=== PATIENT | male | born 1995 | race American Indian/Alaskan Native ===

== ENCOUNTER 2017-06-14 17:32 | Emergency (ER) | payer SELFPAY | END 2017-06-14 18:05 | disposition left against medical advice (07) | LOC: ED 17:32 | DX: R51 Headache (principal); Z53.21 Procedure and treatment not carried out due to patient leaving prior to being seen by health care provider ==

== ENCOUNTER 2017-07-27 22:48 | Emergency (ER) | payer SELFPAY ==
[2017-07-27 23:49] LABS: Basophils % (Auto) 0.5 % (0.0-1.8); Hematocrit 44.9 % (35.5-45.6); Hemoglobin 14.8 gm/dl (11.8-15.2); Mean Corpuscular HGB Conc 33 % (32-34); Mean Corpuscular Hemoglobin 32 pg (28-32); Mean Corpuscular Volume 97 fl (84-94); Platelet Count 220 K/mm3 (140-440); Red Blood Count 4.64 M/mm3 (3.65-5.03); Red Cell Distribution Width 12.9 % (13.2-15.2)
[2017-07-28 00:06] LABS: Alanine Aminotransferase 16 units/L (7-56); Albumin/Globulin Ratio 1.2 %; Alkaline Phosphatase 70 units/L (35-129); Anion Gap 18 mmol/L; BUN/Creatinine Ratio 13; Blood Urea Nitrogen 10 mg/dL (9-20); Carbon Dioxide 26 mmol/L (22-30); Chloride 100.6 mmol/L (98-107); Glucose 115 mg/dL (75-100); Lipase 35 units/L (13-60); Potassium 4.1 mmol/L (3.6-5.0); Sodium 140 mmol/L (137-145); Total Protein 7.4 g/dL (6.3-8.2)
[2017-07-28] MEDS ORDERED: TYLENOL PO ONE (02:25)
[2017-07-28 02:26] LABS: Bilirubin,Urine NEG (Negative); Blood,Urine LG (Negative); Ketones,Urine NEG (Negative); Leukocyte Esterase,Urine NEG (Negative); Mucus,Urine 2+ /HPF; Nitrite,Urine NEG (Negative)
[2017-07-28] MEDS ORDERED: TYLENOL ONE (02:28)
[2017-07-28 02:30] LABS: RBC,Urine > 182.0 /HPF (0.0-6.0)
[2017-07-28] MEDS ORDERED: ZOFRAN IV ONE (06:07)
[2017-07-28] MEDS ORDERED: TORADOL IV ONE (06:07)
[2017-07-28] MEDS ORDERED: NACL 0.9% 1000 ML 1,000 ML IV ONE (06:07)
--- NOTE | 2017-07-28 06:11 | Emergency Department Report ---
ED Abdominal Pain HPI - General Chief Complaint: Abdominal Pain Stated Complaint: ABD & SWOLLEN TONGUE Time Seen by Provider: 07/28/17 06:04 Source: patient Mode of arrival: Ambulatory Limitations: No Limitations - History of Present Illness Initial Comments: 22-year-old male who presents emergency Department 3 days of abdominal pain. Patient states pain started in his right lower quadrant and has stayed constant since that time. It is worse with palpation. He is also noticed some dark urine today. He denies fevers chills. He has had some nausea but no vomiting. He has had runny loose bowel movements. No history of abdominal surgeries. MD Complaint: abdominal pain -: Gradual, days(s) (3) Location: RLQ Migration to: no migration Severity: moderate Severity scale (0 -10): 10 Quality: aching Consistency: constant Improves With: nothing Worsens With: nothing Associated Symptoms: nausea. denies: vomiting, diarrhea, fever, chills, dysuria , hematemesis - Related Data Previous Rx's Medication Instructions Recorded Last Taken Type Acetaminophen/Codeine [Tylenol #3] 1 tab PO Q6H PRN #116 tab 01/11/16 Unknown Rx Penicillin Vk [Veetids TAB] 500 mg PO Q8H #30 tablet 01/11/16 Unknown Rx Ketorolac [Toradol] 10 mg PO Q6H PRN #20 tablet 08/06/16 Unknown Rx Ondansetron [Zofran Odt] 4 mg PO QID PRN #20 tab.rapdis 08/06/16 Unknown Rx Ibuprofen [Motrin 800 MG tab] 800 mg PO Q8HR PRN #21 tablet 07/28/17 Unknown Rx Ondansetron [Zofran Odt] 4 mg PO TID PRN #10 tab.rapdis 07/28/17 Unknown Rx Tamsulosin [Flomax] 0.4 mg PO QDAY #10 cap 07/28/17 Unknown Rx oxyCODONE [Roxicodone TAB] 5 mg PO Q6HR PRN #15 tablet 07/28/17 Unknown Rx Allergies Allergy/AdvReac Type Severity Reaction Status Date / Time No Known Allergies Allergy Verified 01/11/16 17:09 ED Review of Systems ROS: Stated complaint: ABD & SWOLLEN TONGUE Other details as noted in HPI Comment: All other systems reviewed and negative ENT: denies: epistaxis Respiratory: denies: cough, shortness of breath Cardiovascular: denies: chest pain, palpitations Gastrointestinal: abdominal pain, nausea Neurological: denies: headache, weakness, numbness, paresthesias ED Past Medical Hx - Past Medical History Previous Medical History?: Yes Additional medical history: SCOLIOSIS, kidnesy stones - Surgical History Additional Surgical History: "SOME OF SMALL INTESTINES REMOVED" - Family History Family history: no significant - Social History Smoking Status: Current Every Day Smoker Substance Use Type: None - Medications Home Medications: Home Medications Medication Instructions Recorded Confirmed Last Taken Type Acetaminophen/Codeine [Tylenol #3] 1 tab PO Q6H PRN #116 tab 01/11/16 Unknown Rx Penicillin Vk [Veetids TAB] 500 mg PO Q8H #30 tablet 01/11/16 Unknown Rx Ketorolac [Toradol] 10 mg PO Q6H PRN #20 tablet 08/06/16 Unknown Rx Ondansetron [Zofran Odt] 4 mg PO QID PRN #20 tab.rapdis 08/06/16 Unknown Rx Ibuprofen [Motrin 800 MG tab] 800 mg PO Q8HR PRN #21 tablet 07/28/17 Unknown Rx Ondansetron [Zofran Odt] 4 mg PO TID PRN #10 tab.rapdis 07/28/17 Unknown Rx Tamsulosin [Flomax] 0.4 mg PO QDAY #10 cap 07/28/17 Unknown Rx oxyCODONE [Roxicodone TAB] 5 mg PO Q6HR PRN #15 tablet 07/28/17 Unknown Rx ED Physical Exam - General Limitations: No Limitations General appearance: alert, in no apparent distress - Head Head exam: Present: atraumatic, normocephalic - Eye Eye exam: Present: normal appearance. Absent: scleral icterus, conjunctival injection - ENT ENT exam: Present: mucous membranes moist - Neck Neck exam: Present: normal inspection - Respiratory Respiratory exam: Present: normal lung sounds bilaterally. Absent: respiratory distress, wheezes - Cardiovascular Cardiovascular Exam: Present: regular rate, normal rhythm, normal heart sounds. Absent: systolic murmur, diastolic murmur, rubs, gallop - GI/Abdominal GI/Abdominal exam: Present: soft, tenderness (right lower quadrant tenderness), guarding (mild voluntary), normal bowel sounds. Absent: distended, rebound - Rectal Rectal exam: Present: deferred - Extremities Exam Extremities exam: Present: normal inspection - Back Exam Back exam: Present: normal inspection - Neurological Exam Neurological exam: Present: alert, oriented X3 - Psychiatric Psychiatric exam: Present: normal affect, normal mood - Skin Skin exam: Present: warm, dry, intact, normal color. Absent: rash ED Course Vital Signs 07/27/17 07/27/17 07/28/17 22:54 23:11 03:29 Temperature 98.4 F 98.4 F 98.1 F Pulse Rate 81 77 65 Respiratory 18 18 18 Rate Blood Pressure 111/70 111/70 118/81 Blood Pressure [Left] O2 Sat by Pulse 98 99 99 Oximetry 07/28/17 04:19 Temperature 98.1 F Pulse Rate 66 Respiratory 18 Rate Blood Pressure Blood Pressure 126/73 [Left] O2 Sat by Pulse 98 Oximetry ED Medical Decision Making - Lab Data Result diagrams: 07/27/17 23:20 07/27/17 23:20 Laboratory Results - last 24 hr 07/27/17 07/27/17 07/27/17 23:20 23:20 Unknown WBC 9.0 RBC 4.64 Hgb 14.8 Hct 44.9 MCV 97 H MCH 32 MCHC 33 RDW 12.9 L Plt Count 220 Lymph % (Auto) 25.8 [place] % (Auto) 8.5 H Eos % (Auto) 3.0 Baso % (Auto) 0.5 Lymph # 2.3 [place] # 0.8 Eos # 0.3 Baso # 0.0 Seg Neutrophils % 62.2 Seg Neutrophils # 5.6 Sodium 140 Potassium 4.1 Chloride 100.6 Carbon Dioxide 26 Anion Gap 18 BUN 10 Creatinine 0.8 Estimated GFR > 60 BUN/Creatinine Ratio 13 Glucose 115 H Calcium 9.0 Total Bilirubin 0.40 AST 18 ALT 16 Alkaline Phosphatase 70 Total Protein 7.4 Albumin 4.0 Albumin/Globulin Ratio 1.2 Lipase 35 Urine Color Yellow Urine Turbidity Clear Urine pH 6.0 Ur Specific [place] 1.023 Urine Protein 30 mg/dl Urine Glucose (UA) Neg Urine Ketones Neg Urine Blood Lg Urine Nitrite Neg Urine Bilirubin Neg Urine Urobilinogen 4.0 Ur Leukocyte Esterase Neg Urine WBC (Auto) 3.0 Urine RBC (Auto) > 182.0 Calcium Oxalate Crystal Few Urine Mucus 2+ - Medical Decision Making 22-year-old male here with 3 days of right lower quadrant pain. He denied any history of any medical problems to me however he does have documented history of kidney stones in his medical history. He has multiple red blood cells and calcium oxalate crystals in his urine. I suspect he has a kidney stone. Plan to treat with IV fluids Toradol and will get CT scan to evaluate. Portions of this chart were dictated with dictation software. There may be dictation errors contained within this note. Critical care attestation.: If time is entered above; I have spent that time in minutes in the direct care of this critically ill patient, excluding procedure time. ED Disposition Clinical Impression: Renal colic on right side Disposition: DC-01 TO HOME OR SELFCARE Is pt being admited?: No Condition: Stable Instructions: Renal Colic (ED), How to Strain Your Urine (ED) Additional Instructions: Please follow up with a urologist this week. Prescriptions: Ibuprofen [Motrin 800 MG tab] 800 mg PO Q8HR PRN #21 tablet PRN Reason: Moderate Pain Ondansetron [Zofran Odt] 4 mg PO TID PRN #10 tab.rapdis PRN Reason: Nausea oxyCODONE [Roxicodone TAB] 5 mg PO Q6HR PRN #15 tablet PRN Reason: Pain Tamsulosin [Flomax] 0.4 mg PO QDAY #10 cap Referrals: PRIMARY CAREMD [Primary Care Provider] - 3-5 Days MARGARITO GREER MD [Staff Physician] - 3-5 Days
--- NOTE | 2017-07-28 06:54 | Cat Scan Report ---
FINAL REPORT EXAM: CT ABDOMEN PELVIS WO CON HISTORY: right lower quadrant abdominal pain, flank pain TECHNIQUE: Routine axial imaging was obtained of the abdomen and pelvis without oral or IV contrast. Comparison is made the study of 08/06/2016. FINDINGS: The lung bases are clear. Pleural fluid is not seen. The liver and spleen are normal in size and reveals scattered calcified granulomas. The gallbladder, pancreas and adrenal glands appear normal. Both kidneys reveal multiple nonobstructing stones bilaterally measuring up to 3-4 millimeters in diameter. There is mild right-sided hydronephrosis secondary to a partially obstructing 2.9 millimeter stone in the distal right ureter. The bowel loops are normal in caliber. The appendix is not seen. Free fluid is not identified. In the pelvis the prostate gland is normal in size. The bladder is normal in size and reveals a dependent 7 millimeter diameter calculus. The skeletal structures are well-maintained. IMPRESSION: Mild right-sided hydronephrosis secondary to a 2.9 millimeter stone in the distal right ureter. Multiple nonobstructing stones both kidneys. 7 millimeter in diameter dependent bladder calculus.
[2017-07-28] MEDS ORDERED: FLOMAX PO ONE (09:30)
[2017-07-28 09:33] VITALS: BP 110/74
== END 2017-07-28 09:34 | disposition home or self-care (01) ==
LOC: ED 22:48
DX: N23 Unspecified renal colic (principal); F17.210 Nicotine dependence, cigarettes, uncomplicated
CPT/HCPCS: 36415; 74176; 80053; 81001; 83690; 85025; 96361; 96374; 96375; 99284; J1885; J2405; J7030

== ENCOUNTER 2019-09-17 09:45 | Emergency (ER) | payer SELFPAY ==
[2019-09-17 10:34] VITALS: BP 114/63
== END 2019-09-17 13:45 | disposition left against medical advice (07) ==
LOC: ED 09:45
DX: R10.9 Unspecified abdominal pain (principal); Z53.21 Procedure and treatment not carried out due to patient leaving prior to being seen by health care provider

== ENCOUNTER 2020-09-30 14:17 | Emergency (ER) | payer SELFPAY ==
[2020-09-30 14:48] VITALS: BP 114/77
== END 2020-09-30 18:52 ==
LOC: ED 14:17
DX: R06.00 Dyspnea, unspecified (principal); Z53.21 Procedure and treatment not carried out due to patient leaving prior to being seen by health care provider